=== PATIENT | male | born 1950 | race Caucasian/White ===

== ENCOUNTER → 2021-11-25 09:37 | Outpatient (CLI) | payer MEDICARE, SELFPAY ==
[2021-11-25 10:54] LABS: Alanine Aminotransferase 25 IU/L (<50); Albumin 4.1 g/dL (3.5-5.0); Albumin Globulin Ratio 1.5 (1.0-2.8); Alkaline Phosphatase 64 U/L (38-126); Aspartate Aminotransferase 23 IU/L (17-59); BUN Creatinine Ratio 14.9 (6-22); Bilirubin Total 0.5 mg/dL (0.2-1.3); Blood Urea Nitrogen 15 mg/dL (9-20); Calcium 8.8 mg/dL (8.4-10.2); Carbon Dioxide 32 mmol/L (22-32); Chloride 101 mmol/L (98-107); Estimated Glomerular Filt Rate > 60 mL/min (>60); Globulin 2.8 g/dL (1.7-4.1); Glucose 99 mg/dL (80-110); HEMOLYSIS < 15 (0-50); Potassium 4.5 mmol/L (3.4-5.1); Sodium 137 mmol/L (137-145); Total Protein 6.9 g/dL (6.3-8.2)
== END ==
PROVIDERS: PCP Nurse Practitioner Primary Care; Referring Provider Nurse Practitioner Primary Care; Visit Provider Nurse Practitioner Primary Care
DX: R91.8 Other nonspecific abnormal finding of lung field (principal)
CPT/HCPCS: 36415; 80053

== ENCOUNTER → 2021-11-25 10:03 | Outpatient (CLI) | payer MEDICARE, SELFPAY ==
--- NOTE | 2021-11-25 | DI.CT.S_ITS ---
PROCEDURE: CT CHEST W CON INDICATIONS: Lung Mass TECHNIQUE: After the administration of intravenous contrast, 5 mm thick sections acquired from the pulmonary apices to the posterior costophrenic angles. 1 mm axial lung, 5 mm thick coronal and sagittal reformats and 7 mm axial MIP were acquired. For radiation dose reduction, the following was used: automated exposure control, adjustment of mA and/or kV according to patient size. COMPARISON: None. FINDINGS: Image quality: Excellent. Lungs and pleura: The trachea is patent. Mild perihilar bronchial wall thickening in upper and lower lobes. Moderate bronchial wall thickening in the lower lobes bilaterally. There are fibrotic changes at the posterior left lung base with mild traction bronchiectasis, bronchial wall thickening, and overlying around atelectatic change. Similar findings to lesser degree are present posterolaterally at the right lung base. There are scattered areas of septal thickening laterally in the lower lobes, with trace adjacent traction bronchiectasis. Calcified pleural plaques posteromedially in the lower lobes and along the left hemidiaphragm. No dominant lung mass or suspicious nodule. There are no pleural effusions. Mediastinum: Heart size is normal. No pericardial effusion. No mediastinal or hilar adenopathy by size criteria. Thoracic aorta and central pulmonary arteries are normal in size. Esophagus is normal in caliber. No hiatal hernia. Bones and chest wall: No suspicious bony lesions. No vertebral body compression fractures. No axillary or supraclavicular adenopathy by size criteria. Thyroid gland is normal . Abdomen: Heterogeneous 2.4 cm mass in the caudate lobe. Subcentimeter hypodensities scattered throughout the liver, too small to characterize. Upper abdominal organs are otherwise normal. Upper abdominal bowel loops are normal in caliber. IMPRESSION: 1. Scattered bilateral areas of pleural parenchymal scarring, fibrosis, and rounded atelectasis. On a background of calcified pleural plaques, findings are suggestive of asbestosis. 2. No dominant mass or nodule in the lung parenchyma. 3. No pleural effusion. 4. Heterogeneous enhancing caudate lobe liver mass. This may be hemangioma, but further characterization with liver protocol MRI or CT is recommended. Dictated by: Angela Andujar M.D. on 11/25/2021 at 15:39 Approved by: Angela Andujar M.D. on 11/25/2021 at 16:05
== END ==
PROVIDERS: PCP Nurse Practitioner Primary Care; Referring Provider Physician Assistant; Visit Provider Physician Assistant
DX: R91.8 Other nonspecific abnormal finding of lung field (principal); J98.4 Other disorders of lung; J84.10 Pulmonary fibrosis, unspecified; J98.11 Atelectasis; R16.0 Hepatomegaly, not elsewhere classified
CPT/HCPCS: 36415; 71260; 80053; Q9967

== ENCOUNTER → 2022-01-16 08:48 | Outpatient (CLI) | payer MEDICARE, SELFPAY ==
--- NOTE | 2022-01-16 09:53 | DI.MRI.S_ITS ---
PROCEDURE: MR ABDOMEN WO/W CON and MRCP INDICATIONS: LIVER MASS SEEN ON CHEST CT TECHNIQUE: Coronal HASTE, axial 2D FLASH in- and coi-xh-molcc; axial breath-hold T2 FSE with fat saturation from the hepatic dome to the iliac crests. Oblique coronal thin-slice and radial thick slab HASTE through the biliary system. Dynamic axial VIBE during administration of contrast. Post-contrast coronal VIBE or 2D FLASH with fat saturation from the hepatic dome to the iliac crests. Restricted diffusion weighted imaging and ADC may be performed. COMPARISON: [facility], CT, CT CHEST W CON, 11/25/2021, 11:34. FINDINGS: Image quality: Excellent. Pancreas and biliary system: Multiloculated cystic lesion in the head/uncinate process of the pancreas measuring 3.1 x 2.4 cm, (6/22). The septations appear thin. No suspicious enhancement is identified. No pancreatic ductal dilatation. No peripancreatic fluid collection. No biliary ductal dilatation. Solid organs: Liver is normal in size. Segment 2 observation measuring 1.4 cm, (16/27). This demonstrates peripheral nodular discontinuous enhancement with progressive filling, moderate intrinsic T1 hyperintense signal, and restricted diffusion. A 2nd similar appearing observation in the caudate lobe measuring 2.1 cm, (15/38). These are most consistent with benign hemangiomas. There are multiple small T2 hyperintense foci scattered throughout the liver without corresponding enhancement. This are most consistent with benign cysts. Gallbladder is not distended. No gallstones seen. Spleen is normal in size and enhancement. No adrenal nodules. Kidneys are normal in size and enhancement, without hydronephrosis. Tiny T2 hyperintense cyst in the left kidney. No suspicious enhancement. Nodes and vessels: No retroperitoneal or mesenteric adenopathy by size criteria. Aorta and inferior vena cava are normal in size. Bowel and peritoneum: Unenhanced bowel loops are normal in caliber throughout. No free fluid. Lung bases: No pleural effusion. Bibasilar opacities are similar. Heart size is normal. Bones and soft tissues: No ventral hernias. Bone marrow is normal in overall signal. IMPRESSION: 1. Multiloculated cystic lesion in the head/uncinate process of the pancreas measuring 3.1 cm. This could represent a mucinous cystic neoplasm, IPMN, serous cystadenoma. Recommend endoscopic ultrasound and FNA. 2. Small benign hemangioma is identified in the liver x2. Multiple small benign hepatic cysts. Comment: Findings were conveyed to office of Adam Spencer at the time of dictation. Dictated by: Emerson Agarwal M.D. on 01/16/2022 at 11:24 Approved by: Emerson Agarwal M.D. on 01/16/2022 at 11:44
== END ==
PROVIDERS: PCP Nurse Practitioner Primary Care; Referring Provider Nurse Practitioner Primary Care; Visit Provider Nurse Practitioner Primary Care
DX: K76.89 Other specified diseases of liver (principal); K86.2 Cyst of pancreas; D18.09 Hemangioma of other sites
CPT/HCPCS: 74183; A9579